=== PATIENT | female | born 1955 | race Caucasian/White ===

== ENCOUNTER → 2017-08-14 | Outpatient (CLI) | payer BC ==
--- NOTE | 2017-08-14 09:44 | Diagnostic Imaging Report ---
INDICATION: Back pain AP and lateral views of the lumbar spine are obtained. The lumbar vertebrae are normal in height. There is mild dextroscoliotic change. There is no compression deformity. There is facet degenerative change at L4-5 and L5-S1. There is prominent anterior osteophyte formation at T11-T12. IMPRESSION: Degenerative findings as described above with no acute appearing bony abnormality. Dictated by: Dictated on workstation # [id number]
--- NOTE | 2017-08-14 09:45 | Diagnostic Imaging Report ---
EXAMINATION: Pelvis and bilateral hips. INDICATION: Chronic hip pain A single AP view of the pelvis and AP and lateral views of both hip joints were obtained. There are no prior studies available for comparison. There is no fracture, dislocation or acute bony abnormality evident. There is mild degenerative disc disease involving the hip and sacral joints. The soft tissues are unremarkable. IMPRESSION: There is no evidence for an acute bony abnormality. Dictated by: Dictated on workstation # [id number]
== END ==
LOC: RAD 08:06
PROVIDERS: ATTEND Chiropractor
DX: M47.817 Spondylosis without myelopathy or radiculopathy, lumbosacral region (principal); M25.78 Osteophyte, vertebrae; M41.86 Other forms of scoliosis, lumbar region; G89.29 Other chronic pain; M25.551 Pain in right hip; M25.552 Pain in left hip
CPT/HCPCS: 72100; 73523

== ENCOUNTER 2018-05-21 05:56 | Outpatient (CLI) | payer BC ==
[~2018-05-21] VITALS: Ht 180.3 cm; Wt 84.8 kg
== END 2018-05-21 16:18 | disposition home or self-care (01) ==
LOC: PREOP 05:56
PROVIDERS: ATTEND Surgery
DX: Z01.818 Encounter for other preprocedural examination (principal)

== ENCOUNTER 2018-05-28 09:22 | Day surgery (SDC) | payer BC ==
[~2018-05-28] VITALS: Ht 180.3 cm; Wt 84.8 kg
--- OUTSIDE RECORDS SUMMARY | 2018-05-28 09:29 | XMS REPORT | Continuity of Care Document ---
Author Author [facility] Organization [facility] Address Unknown Phone Unavailable Allergies Active Description Code Type Severity Reaction Onset Reported/Identified Relationship to Patient Clinical Status Yes Penicillins [id number] Drug Allergy Unknown RASH 05/22/2018 Medications There is no data. Problems Date Dx Coded Attending Type Code Diagnosis Diagnosed By 08/15/2017 LONG DC, RADHA S Ot G89.29 OTHER CHRONIC PAIN 08/15/2017 LONG DC, RADHA S Ot M25.551 PAIN IN RIGHT HIP 08/15/2017 LONG DC, RADHA S Ot M25.552 PAIN IN LEFT HIP 08/15/2017 LONG DC, RADHA S Ot M25.78 OSTEOPHYTE, VERTEBRAE 08/15/2017 LONG DC, RADHA S Ot M41.86 OTHER FORMS OF SCOLIOSIS, LUMBAR REGION 08/15/2017 LONG DC, RADHA S Ot M47.817 SPONDYLS W/O MYELOPATHY OR RADICULOPATHY 08/28/2017 LONG DC, RADHA S Ot G89.29 OTHER CHRONIC PAIN 08/28/2017 LONG DC, RADHA S Ot M25.551 PAIN IN RIGHT HIP 08/28/2017 LONG DC, RADHA S Ot M25.552 PAIN IN LEFT HIP 08/28/2017 LONG DC, RADHA S Ot M25.78 OSTEOPHYTE, VERTEBRAE 08/28/2017 LONG DC, RADHA S Ot M41.86 OTHER FORMS OF SCOLIOSIS, LUMBAR REGION 08/28/2017 LONG DC, RADHA S Ot M47.817 SPONDYLS W/O MYELOPATHY OR RADICULOPATHY 05/21/2018 CHELSEA OJEDA MD Ot Z01.818 ENCOUNTER FOR OTHER PREPROCEDURAL EXAMIN 05/22/2018 CHELSEA OJEDA MD Ot Z01.818 ENCOUNTER FOR OTHER PREPROCEDURAL EXAMIN Procedures There is no data. Results There is no data. Encounters ACCT No. Visit Date/Time Discharge Status Pt. Type Provider Facility Loc./Unit Complaint [id number] 05/21/2018 05:56:00 05/21/2018 16:18:00 DIS Outpatient CHELSEA OJEDA MD [facility] PREOP COLONOSCOPY [id number] 08/14/2017 08:06:00 08/14/2017 23:59:59 CLS Outpatient RADHA BURLESON DC [facility] RAD M25.552 [id number] 11/25/2012 08:32:00 11/25/2012 23:59:59 CLS Outpatient [id number] 05/28/2018 09:22:00 ACT Outpatient CHELSEA OJEDA MD [facility] ENDO SCREENING/FAMILY HX COLON CA
--- OUTSIDE RECORDS SUMMARY | 2018-05-28 09:29 | XMS REPORT ---
Author BEVERLY [facility] eClinicalWorks Address Unknown Phone Unavailable Care Team Providers Care Fancy Wire Drawer Name Role Phone BEVERLY LARSON CP Unavailable Allergies No Known Allergies Problems Problem Type Condition Code Onset Dates Condition Status Assessment Encounter for immunization Z23 Active Medications No Known Medications Procedures Procedure Coding System Code Date SINGLE IMMUNIZATION ADMIN CPT-4 31105 February 01, 2016 TDAP (BOOSTRIX) CPT-4 23228 February 01, 2016 Results No Known Results Immunizations Vaccine Administration Date TDAP (BOOSTRIX) February 01, 2016 Summary Purpose eClinicalWorks Submission
[2018-05-28] MEDS ORDERED: NS IV 500 ML 500 ML ONE (09:36)
[2018-05-28] MEDS ORDERED: NS IV 500 ML 500 ML IV PRN (09:41)
[2018-05-28] MEDS ORDERED: fentaNYL INJECTION 100 MCG/2 ML AMP IVP ONE (09:45)
[2018-05-28] MEDS ORDERED: MIDAZOLAM 2 MG/2 ML (VERSED) VIAL IVP ONE (09:45)
[2018-05-28] MEDS ORDERED: LIDOCAINE JELLY 2% 6 ML SYRINGE MM PRN (09:45)
[2018-05-28 09:51] VITALS: BP 116/73
[2018-05-28] MEDS ORDERED: fentaNYL INJECTION 100 MCG/2 ML AMP ONE ×2 (10:45)
[2018-05-28] MEDS ORDERED: LIDOCAINE JELLY 2% 6 ML SYRINGE ONE (10:45)
[2018-05-28] MEDS ORDERED: MIDAZOLAM 2 MG/2 ML (VERSED) VIAL ONE ×4 (10:46)
--- NOTE | 2018-05-28 10:53 | Conscious Sedation/ASA ---
Conscious Sedation Pre-Proced Time 10:30 ASA Score 2 For ASA 3 and 4: Consider anesthesia and medical clearance. Also, for patients with a history of failed moderate sedation consider anesthesia. Airway Lungs Heart ASA score ASA 1: a normal healthy patient ASA 2: a patient with a mild systemic disease (mid diabetes, controlled hypertension, obesity ASA 3: a patient with a severe systemic disease that limits activity (angina , COPD, prior Myocardial infarction) ASA 4: a patient with an incapacitating disease that is a constant threat to life (CHF, renal failure) ASA 5: a moribund patient not expected to survive 24 hrs. (ruptured aneurysm) ASA 6: a declared brain patient whose organs are being harvested. For emergent operations, add the letter E after the classification Mallampati Classification Grade 2 Sedation Plan Analgesia, Amnesia, Plan communicated to team members, Discussed options with patient/fam, Discussed risks with patient/fam The patient is an appropriate candidate to undergo the planned procedure, sedation, and anesthesia. The patient immediately re-assessed prior to indication. CHELSEA OJEDA MD May 28, 2018 10:53 am
--- NOTE | 2018-05-28 10:54 | Progress Note-Pre Operative ---
Pre-Operative Progress Note H&P Reviewed The H&P was reviewed, patient examined and no changes noted. Date Seen by Provider: May 28, 2018 Time Seen by Provider: 10:30 Date H&P Reviewed: May 28, 2018 Time H&P Reviewed: 10:30 Pre-Operative Diagnosis: family hx colon ca, screening CHELSEA OJEDA MD May 28, 2018 10:54 am
[2018-05-28] MEDS ORDERED: HYDROcodone/APAP 5 MG/325 MG (LORTAB) TAB PO PRN (11:00)
[2018-05-28] MEDS ORDERED: ACETAMINOPHEN 325 MG TABLET PO PRN (11:00)
[2018-05-28] MEDS ORDERED: morphine INJ 10 MG/ML 1ML (SYR OR VIAL) IV PRN (11:00)
[2018-05-28] MEDS ORDERED: ONDANSETRON 4 MG/2 ML (SDV) Z0FRAN IV PRN (11:00)
--- NOTE | 2018-05-28 11:36 | Progress Note-Post Operative ---
Post-Operative Progess Note Surgeon (s)/Lower School Music Teacher (s) Surgeon CHELSEA OJEDA MD Lower School Music Teacher: none Pre-Operative Diagnosis family hx colon ca, screening Post-Operative Diagnosis chronic stage 1 ext and int hemorrhoids, HP rectosigmoid jxn(2mm), mild sigmoid diverticulosis, melanosis coli. Procedure & Operative Findings Date of Procedure 05/28/18 Procedure Performed/Findings Colonoscopy with bx. Anesthesia Type CS Estimated Blood Loss Estimated blood loss (mL): minimal Specimens/Packing Specimens Removed rectosigmoid polyp CHELSEA OJEDA MD May 28, 2018 11:36 am
--- NOTE | 2018-05-28 11:37 | Discharge Inst-Surgical ---
D/C Lap Instructions-RUSTY Follow Up 5 years. Activity as tolerated High Fiber Diet 25g or more per day Avoid Alcohol, Caffeine, Spicy [place] and Acid foods. Drink 64 fluid oz or more of fluids per day. Symptoms to Report: Fever over 101 degree F, Nausea/Vomiting If any problems/questions: Contact your physician or go to Emergency Room CHELSEA OJEDA MD May 28, 2018 11:37 am
[2018-05-28 12:00] VITALS: BP 117/61
[2018-05-28 12:20] VITALS: BP 124/78
[2018-05-28 12:25] VITALS: BP 124/78
--- NOTE | 2018-05-28 18:46 | OPERATIVE REPORT ---
DATE OF SERVICE: 05/28/2018 ATTENDING PRIMARY CARE PHYSICIAN: Dr. Stephens. PREOPERATIVE DIAGNOSIS: Screening colonoscopy, family history colon cancer. POSTOPERATIVE DIAGNOSES: Mild chronic stage I external and internal hemorrhoids, small hyperplastic polyp of the rectosigmoid junction, mild sigmoid diverticulosis and melanosis coli. PROCEDURE: Colonoscopy with biopsy. SURGEON: Chelsea Ojeda MD ANESTHESIA: Conscious sedation. ESTIMATED BLOOD LOSS: Minimal. FINDINGS: Mild chronic stage I external and internal hemorrhoids. There was a small hyperplastic polyp of the rectosigmoid junction 2 mm in size. A few small isolated diverticula of the descending colon and sigmoid colon, there was staining within the more along the right side of the colon consistent with melanosis coli cecum was normal. DISPOSITION: The patient tolerated the procedure well. INDICATIONS: The patient is a 62-year-old female in need of a screening colonoscopy. Her last colonoscopy was in 2007 where she did have a polyp removed and it was a benign hyperplastic polyp. She does have a family history of colon cancer with her father being diagnosed with the disease at age 57. She also does have a strong family history of other cancers including a sister with breast cancer diagnosed in her 50s and a personal history of breast cancer. She did undergo BRCA genetic testing; however, this was negative. DESCRIPTION OF PROCEDURE: The patient was brought to the endoscopy suite, laid in the left lateral decubitus position. After adequate IV pain and sedating medications and conscious sedation anesthesia, a digital rectal examination was performed. Mild chronic stage I external and internal hemorrhoids identified not actively edematous nor inflamed and no bleeding. Normal sphincter tone was felt and there were no palpable masses. The endoscope was then intubated to the anus and rectum gently insufflated. The endoscope was then advanced to the [facility] in the rectum with no polyps or any neoplasms identified. At approximately the rectosigmoid junction, a small hyperplastic polyp approximately 2 mm in size was identified. This was biopsied and destroyed using forceps and electrocautery with visualization of good hemostasis. The endoscope was then advanced to the sigmoid colon and descending colon where a few small diverticulosis identified. No mucosal inflammatory change to indicate any diverticulitis. The endoscope was then advanced to the remainder of the descending, transverse, and ascending colon. More towards the proximal colon, there were mucosal staining consistent with melanosis coli and laxative use. There were no other lesions identified. The endoscope was then slowly withdrawn while taking a second look and suctioning of residual air with no additional findings. The patient tolerated the procedure well. We will recommend a high fiber diet with at least 30 grams of fiber per day as well as copious amounts of water to promote soft stools on a daily basis. Due to her family history of colon cancer as well as strong family history of cancers in general, we may recommend a followup colonoscopies within 5 years. Job ID: [id number] DocumentID: [id number] Dictated Date: 05/28/2018 11:31:18 [employer] Date: 05/28/2018 18:45:36 Dictated By: CHELSEA OJEDA MD MTDD
== END 2018-05-28 12:25 | disposition home or self-care (01) ==
LOC: ENDO 09:22
PROVIDERS: ATTEND Surgery
DX: Z12.11 Encounter for screening for malignant neoplasm of colon (principal); K63.5 Polyp of colon; K57.30 Diverticulosis of large intestine without perforation or abscess without bleeding; K63.89 Other specified diseases of intestine; K64.0 First degree hemorrhoids; Z80.0 Family history of malignant neoplasm of digestive organs; Z80.3 Family history of malignant neoplasm of breast; Z85.3 Personal history of malignant neoplasm of breast; Z88.0 Allergy status to penicillin
CPT/HCPCS: 88305

== ENCOUNTER → 2020-04-22 | Outpatient (CLI) | payer MEDICARE, OTHER ==
[~2020-04-22] VITALS: Ht 180 cm; Wt 84.0 kg
[~2020-04-22] MED LIST: CATHETER FLUSH 10 ML SYR IV PRN; REGADENOSON 0.4 MG/5 ML SYR (LEXISCAN) IV ONE
[2020-04-22 09:19] VITALS: BP 116/73
--- NOTE | 2020-04-22 16:24 | STRESS TEST ---
DATE OF SERVICE: 04/22/2020 RESTING AND POST REGADENOSON TECHNETIUM-99M TETROFOSMIN SPECT CT IMAGING ORDERING PHYSICIAN: Dr. Carlton. PRIMARY PHYSICIAN: Dr. Stephens. CLINICAL DIAGNOSES: Frequent premature ventricular contractions, palpitations, abnormal electrocardiogram. Baseline images were carried out after injection of 10.96 mCi of technetium-99m Tetrofosmin. This was followed by 0.4 mg regadenoson and 28.6 mCi of technetium-99m Tetrofosmin for stress imaging. The electrocardiogram showed sinus rhythm at baseline. The electrocardiogram did not change significantly with regadenoson infusion. The patient had some stomach cramping following regadenoson infusion, which resolved in a few minutes. Review of images at rest and following stress does not indicate any significant perfusion defects consistent with significant myocardial ischemia or infarction. Gated images show normal global left ventricular systolic function with normal regional wall motion. Left ventricular ejection fraction is calculated to be 58%. Left ventricular end diastolic volume is 75 mL. TID is absent (1.03). CONCLUSIONS: 1. No evidence of any significant myocardial ischemia or infarction on this study. 2. Normal regional wall motion. 3. Normal global left ventricular systolic function with a calculated ejection fraction of 58%. Job ID: [id number] DocumentID: [id number] Dictated Date: 04/22/2020 12:35:26 Mess Attendant Date: 04/22/2020 16:22:28 Dictated By: SYLVIA CARLTON MD, MA, FACP, FACC,
== END ==
LOC: CARD 07:45
PROVIDERS: ATTEND Internal Medicine Cardiovascular Disease
DX: I49.3 Ventricular premature depolarization (principal); R94.31 Abnormal electrocardiogram [ECG] [EKG]; R00.2 Palpitations
CPT/HCPCS: 78452; 93017; A9502

== ENCOUNTER → 2020-04-26 | Outpatient (CLI) | payer MEDICARE, OTHER ==
--- NOTE | 2020-04-26 08:49 | Diagnostic Imaging Report ---
INDICATION: Postmenopausal. COMPARISON: None FINDINGS: The bone mineral density of the hips and spine was measured. There are no prior studies available for comparison. The total T score for the spine is -1.8. This does indicate osteopenia. The total T score for each hip is -1.4. The T score for the left femoral neck is -1.5 and for the right femoral neck -1.8. These values do indicate osteopenia. AP Spine L1-L4: [BMD (g/cm2): 0.982] [T-Score: -1.8] [Z-Score: -0.8] [BMD Previous: NA] [BMD % Change: NA] LT Hip Neck: [BMD (g/cm2): 0.835] [T-Score: -1.5] [Z-Score: -0.3] LT Hip Total: [BMD (g/cm2):0.838] [T-Score:-1.47] [Z-Score: -0.5] [BMD Previous: NA] [BMD % Change: NA] RT Hip Neck: [BMD (g/cm2):0.782] [T-Score:-1.8] [Z-Score:-0.7] RT Hip Total: [BMD (g/cm2):0.829] [T-score:-1.4] [Z-Score:-0.5] [BMD Previous:NA] [BMD % Change:NA] *Indicates significant change from prior examination based on 95% confidence level. World Health Organization criteria for BMD interpretation classify patients as Normal (T-score at or above -1.0), Osteopenic (T-score between -1.0 and -2.5) or Osteoporotic (T-score at or below -2.5). LIMITATIONS AND MODIFICATION: None. FRACTURE RISK (FRAX SCORE): The ten year probability of (%): Major Osteoporotic Fracture: [17.3] Hip Fracture: [2.5] IMPRESSION: 1. There is osteopenia of the spine, hips and femoral necks. 2. 3. See below National Osteoporosis Foundation guidelines on when to potentially initiate pharmacologic therapy. Based on the National Osteoporosis Foundation Guidelines, pharmacologic treatment should be initiated in any of the following, unless clinical conditions suggest otherwise: * Any patient with prior fragility fracture of the hip or vertebrae. A spine fracture indicates 5X risk for subsequent spine fracture and 2X risk for subsequent hip fracture. * Osteoporosis (T-score <-2.5). * Postmenopausal women and men age 50 and older with low bone mass/osteopenia (T-score between -1.0 and -2.5) by DXA and 10-year major osteoporotic fracture greater than 20% or a 10-year probability of hip fracture greater than 3%. These fracture risks are supplied above in the FRAX score, if applicable. * Clinician judgement and/or patient preferences may indicate treatment for people with 10-year fracture probabilities above or below these levels. Dictated by: Dictated on workstation # [id number]
== END ==
LOC: RAD 08:30
PROVIDERS: ATTEND Nurse Practitioner
DX: Z13.820 Encounter for screening for osteoporosis (principal); M85.89 Other specified disorders of bone density and structure, multiple sites; Z78.0 Asymptomatic menopausal state
CPT/HCPCS: 77080

== ENCOUNTER → 2020-04-28 | Outpatient (CLI) | payer MEDICARE, OTHER | LOC: CARD 12:00 | PROVIDERS: ATTEND Internal Medicine Cardiovascular Disease | DX: I49.3 Ventricular premature depolarization (principal); R94.31 Abnormal electrocardiogram [ECG] [EKG] | CPT/HCPCS: 93225; 93226; 93306 ==

== ENCOUNTER → 2020-05-11 | Outpatient (CLI) | payer MEDICARE, OTHER ==
[~2020-05-11] MED LIST changes: +HOLD METFORMIN - RECEIVED CONTRAST 20 ML VIAL IV SCH; +IOHEXOL 350 MG/ML 100 ML (OMNIPAQUE 350) VIAL IV ONE; +NS 100 ML (IVPB) BAG IV ONE; -REGADENOSON 0.4 MG/5 ML SYR (LEXISCAN) IV ONE
[2020-05-11 07:38] LABS: BUN/CREATININE RATIO 34; CALCIUM 9.1 MG/DL (8.5-10.1); CARBON DIOXIDE 24 MMOL/L (21-32); CHLORIDE 106 MMOL/L (98-107); CREATININE SERUM 0.76 MG/DL (0.60-1.30); GFR ESTIMATED > 60; GLUCOSE 96 MG/DL (70-105); POTASSIUM 4.6 MMOL/L (3.6-5.0); SODIUM 140 MMOL/L (135-145)
--- NOTE | 2020-05-11 08:35 | Diagnostic Imaging Report ---
PROCEDURE: CT angiography of the chest with contrast. TECHNIQUE: Multiple contiguous axial images were obtained through the chest after uneventful bolus administration of intravenous contrast. 3D reconstructed CTA MIP acquisitions were also performed. Auto Exposure Controls were utilized during the CT exam to meet ALARA standards for radiation dose reduction. INDICATION: Evaluate for thoracic aneurysm. Abnormality seen on prior echocardiogram. COMPARISON: 04/22/2020. FINDINGS: The heart size is within normal limits. No pericardial effusion is present. There is dilation of the ascending thoracic aorta measuring approximately 4.1 x 4.1 cm. No filling defects are seen to suggest dissection. No periaortic inflammatory changes are seen. The descending thoracic aorta is normal in caliber measuring 2.7 cm. There is no mediastinal, hilar, or axillary lymphadenopathy. The lungs demonstrate no pulmonary nodules or masses. There are no focal areas of consolidation. No central endobronchial obstructing lesions are identified. There is no pleural effusion or pneumothorax. The osseous structures demonstrate no acute abnormalities. Limited views of the upper abdominal structures demonstrate no acute abnormalities. Both adrenal glands are unremarkable. IMPRESSION: 1. Ectatic ascending thoracic aorta measuring 4.1 cm in max diameter. No evidence of dissection. No periaortic inflammatory changes are seen. 2. No focal consolidations or suspicious pulmonary nodules. Dictated by: Dictated on workstation # [id number]
== END ==
LOC: RAD 08:15
PROVIDERS: ATTEND Nurse Practitioner Family
DX: I71.2 Thoracic aortic aneurysm, without rupture (principal)
CPT/HCPCS: 36415; 71275; 80048

== ENCOUNTER 2021-10-10 12:00 | Day surgery (SDC) | payer MEDICARE, OTHER ==
[~2021-10-10] VITALS: Ht 180 cm; Wt 86.0 kg
[2021-10-10 11:30] VITALS: BP 137/88
[~2021-10-10 12:00] MED LIST changes: -CATHETER FLUSH 10 ML SYR IV PRN; -HOLD METFORMIN - RECEIVED CONTRAST 20 ML VIAL IV SCH; -IOHEXOL 350 MG/ML 100 ML (OMNIPAQUE 350) VIAL IV ONE; +LIDOCAINE 1% INJ 50 ML (XYLOCAINE) VIAL ONE; -NS 100 ML (IVPB) BAG IV ONE
--- NOTE | 2021-10-10 16:57 | OPERATIVE REPORT ---
DATE OF SERVICE: 10/10/2021 PREOPERATIVE DIAGNOSIS: Palpitations. POSTOPERATIVE DIAGNOSIS: Palpitations. PROCEDURE: Implantable loop recorder implantation. INDICATIONS: The patient is a 65-year-old lady, who has been experiencing palpitations that are infrequent, but that are quite bothersome to her. A 24-hour Holter monitoring has not established diagnoses. Given symptoms and its low frequency, we proceeded with the implantable loop recorder implantation today after having obtained an informed consent. DESCRIPTION OF PROCEDURE: [facility] The left prepectoral area was prepared and draped in the usual sterile fashion. Lidocaine 1% was used for local anesthesia. We used the tools provided with the Medtronic LINQ II device to make a subcutaneous pocket anterior to the fourth intercostal space into which the device was placed and the wound edges were closed using Dermabond and Steri-Strips. The serial number of the device is [id number]. She tolerated the procedure well. Job ID: [id number] DocumentID: [id number] Dictated Date: 10/10/2021 12:08:42 Customer Care Professional Date: 10/10/2021 16:56:59 Dictated By: SYLVIA MARQUEZ MD, MA, FACP, FACC, MTDD
== END 2021-10-10 12:30 | disposition home or self-care (01) ==
LOC: CATH 12:00
PROVIDERS: ATTEND Internal Medicine Cardiovascular Disease
DX: R00.2 Palpitations (principal); I49.3 Ventricular premature depolarization; R94.31 Abnormal electrocardiogram [ECG] [EKG]; I47.1 Supraventricular tachycardia; I49.1 Atrial premature depolarization; G47.30 Sleep apnea, unspecified; I77.810 Thoracic aortic ectasia; Z79.82 Long term (current) use of aspirin; Z87.891 Personal history of nicotine dependence
CPT/HCPCS: 33285; C1764

== ENCOUNTER → 2022-02-27 | Outpatient (CLI) | payer MEDICARE, OTHER ==
[~2022-02-27] VITALS: Ht 177 cm; Wt 77.0 kg
[~2022-02-27] MED LIST changes: -LIDOCAINE 1% INJ 50 ML (XYLOCAINE) VIAL ONE; +REGADENOSON 0.4 MG/5 ML SYR (LEXISCAN) IV ONE
[2022-02-27] MEDS: CATHETER FLUSH 10 ML SYR IVP PRN ×2 (07:20→08:51)
[2022-02-27 08:51] VITALS: BP 130/75
--- NOTE | 2022-02-28 08:40 | STRESS TEST ---
DATE OF SERVICE: 02/27/2022 RESTING AND POST REGADENOSON TECHNETIUM-99M TETROFOSMIN SPECT CT IMAGING ORDERING PHYSICIAN: Nakia Greene APRN PRIMARY PHYSICIAN: ____. OTHER PHYSICIAN: Dr. Marquez. CLINICAL DIAGNOSES: Paroxysmal atrial fibrillation. Baseline images were carried out after injection of 10.71 mCi of technetium-99m Tetrofosmin. This was followed by 0.4 mg regadenoson and 28.2 mCi of technetium-99m Tetrofosmin for stress imaging. The electrocardiogram showed sinus rhythm at baseline. It did not change significantly with the regadenoson infusion. Review of images at rest and following stress does not indicate any significant perfusion defects consistent with myocardial ischemia or infarction. Gated images show normal global left ventricular systolic function with normal regional wall motion. Left ventricular ejection fraction is calculated to be 61%. CONCLUSIONS: 1. No evidence of any significant myocardial ischemia or infarction on this study. 2. Normal regional wall motion. 3. Normal global left ventricular systolic function with a calculated ejection fraction of 61%. Job ID: [id number] DocumentID: [id number] Dictated Date: 02/28/2022 07:48:24 Instrument Checker Date: 02/28/2022 08:39:42 Dictated By: SYLVIA MARQUEZ MD, MA, FACP, FACC,
== END ==
LOC: CARD 07:30
PROVIDERS: ATTEND Nurse Practitioner Family
DX: I48.0 Paroxysmal atrial fibrillation (principal)
CPT/HCPCS: 78452; 93017; A9502

== ENCOUNTER 2022-03-14 14:03 | Outpatient (CLI) | payer MEDICARE, OTHER | END 2022-03-14 14:20 | LOC: SLEEP 14:03 | PROVIDERS: ATTEND Nurse Practitioner | DX: G47.33 Obstructive sleep apnea (adult) (pediatric) (principal); I48.91 Unspecified atrial fibrillation | CPT/HCPCS: G0399 ==